=== PATIENT | female | born 2005 | race Caucasian/White ===

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

== ENCOUNTER 2024-03-28 20:43 | Observation (INO) | payer OTHER, BC ==
[~2024-03-28] VITALS: Ht 162.6 cm; Wt 54.4 kg
[2024-03-28 21:21] LABS: BASOPHILS ABSOLUTE AUTO 0.07 K/mm3 (0.00-0.23); BASOPHILS PERCENT AUTO 1 % (0-2); EOSINOPHILS ABSOLUTE AUTO 0.37 K/mm3 (0.00-0.68); EOSINOPHILS PERCENT AUTO 4 % (0-6); Hematocrit 37.8 % (33.0-51.0); Hemoglobin 12.4 g/dL (11.5-16.0); IMMATURE GRAN ABSOLUTE AUTO 0.02 K/mm3 (0.00-0.10); IMMATURE GRAN PERCENT AUTO 0 % (0-1); LYMPHOCYTES PERCENT AUTO 42 % (21-46); MONOCYTES ABSOLUTE AUTO 0.48 K/mm3 (0.16-1.47); MONOCYTES PERCENT AUTO 5 % (4-13); Mean Corpuscular HGB 27.9 pg (26.0-34.0); Mean Corpuscular HGB Conc 32.8 g/dL (31.5-36.5); Mean Corpuscular Volume 85 fL (80-100); NEUTROPHILS ABSOLUTE AUTO 4.21 K/mm3 (1.96-9.15); NEUTROPHILS PERCENT AUTO 48 % (41-73); Platelet Count 290 K/mm3 (150-400); RDW Coefficient Variation 13.7 % (11.7-14.2); RDW Standard Deviation 42.5 fL (35.1-46.3); Red Blood Cell Count 4.45 M/mm3 (3.80-5.20); White Blood Cell Count 8.85 K/mm3 (4.00-11.30)
[2024-03-28 21:48] LABS: Source, Urine Clean Catch
[2024-03-28 21:50] LABS: Albumin, Blood 4.1 g/dL (3.4-5.0); Albumin/Globulin Ratio 1.1 (0.8-1.8); Bilirubin, Total 0.4 mg/dL (0.1-1.0); Bun/Creatinine Ratio 12.3 (12.0-20.0); Calcium, Blood 9.5 mg/dL (8.5-10.1); Creatinine, Blood 0.73 mg/dL (0.40-1.00); Globulin, Blood 3.9 g/dL (2.2-4.0); Potassium, Blood 3.6 mmol/L (3.5-5.5)
[2024-03-28 21:56] LABS: Bilirubin, Urine Neg (Neg); Blood, Urine 5+ (Neg); Glucose Qualitative, Urine Neg (Neg); Ketones, Urine Neg (Neg); Leukocyte Esterase, Urine 1+ (Neg); Nitrite, Urine Neg (Neg); Protein, Urine Neg (Neg); Urobilinogen, Urine NORM (Normal)
[2024-03-28 22:04] LABS: Appearance, Urine Clear (Clear); Bacteria Few /hpf; Color, Urine Yellow (P-Yellow); Squamous Epithelial Cells Few /hpf (Few); White Blood Cells, Urine 0-2 /hpf (0-5)
[2024-03-28] MEDS ORDERED: Lactated Ringer's 1,000 ML IV SCH (22:45)
[2024-03-29] VITALS (13 sets, daily range): BP systolic 103–121; BP diastolic 57–74
[2024-03-29] MEDS ORDERED: FentaNYL Citrate 50 MCG/ML 2 ML Injection ONE (02:08)
[2024-03-29] MEDS ORDERED: propofoL 20 ML IV ONE (02:08)
[2024-03-29] MEDS ORDERED: Rocuronium Bromide 10 MG/ML 5ML Injection IV ONE (02:09)
[2024-03-29] MEDS ORDERED: Lidocaine HCl 2% Jelly 120MG/6ML SYR (20MG PER ML) ONE (03:22)
[2024-03-29] MEDS ORDERED: Midazolam HCl 1MG / ML 2ML Vial ONE (03:27)
[2024-03-29] MEDS ORDERED: Lidocaine HCl 1% 5 ML SYR INJ ONE (03:30)
[2024-03-29] MEDS ORDERED: Midazolam HCl 1MG / ML 2ML Vial IV ONE (03:30)
[2024-03-29] MEDS ORDERED: Ondansetron HCl 2 MG / ML 2ML Vial IV PRN ×2 (03:30→04:55)
[2024-03-29] MEDS ORDERED: FentaNYL Citrate 50 MCG/ML 2 ML Injection IV PRN ×3 (03:30→03:35)
[2024-03-29] MEDS ORDERED: Lactated Ringer's 1,000 ML IV ONE (03:30)
--- NOTE | 2024-03-29 03:35 | NUR ---
TRANSFERED PT FROM ER10 TO PACU FOR PRE OP CARE AT 0300. PT PLEASANT & COOPERATIVE. DENIES PAIN/CRAMPING. AFEBRILE/VSS. SURGICAL HAT/BP CUFF/PAS SLEEVES PLACED. GERARD WARMER ALSO PLACED. SURGICAL PACK COMPLETE. LR AT TKO. NO COMPLAINTS. WAITING FOR US TECH TO ARRIVE PER DR ELDRIDGE INSTRUCTION.
[2024-03-29] MEDS ORDERED: Ondansetron HCl 2 MG / ML 2ML Vial ONE (04:10)
[2024-03-29] MEDS ORDERED: Dexamethasone Sod Phos 10 MG/ML 1ML VIAL ONE (04:10)
--- NOTE | 2024-03-29 04:13 | NUR ---
PT TRANSFERED TO OR 2 [facility]IA [facility] AT 0350 IN STABLE CONDITION.
[2024-03-29] MEDS ORDERED: Sugammadex Sodium 200 MG/2ML SDV (100 MG/ML) ONE (04:18)
[2024-03-29] MEDS ORDERED: Flumazenil 0.1 MG / ML 5ML Vial ONE (04:30)
[2024-03-29] MEDS ORDERED: Lactated Ringer's 1,000 ML IV SCH (04:50)
[2024-03-29] MEDS ORDERED: Metoclopramide HCl 5MG / ML 2ML Vial IV PRN (04:50)
[2024-03-29] MEDS ORDERED: DiphenhydrAMINE HCL 25 MG Cap PO PRN (04:55)
[2024-03-29] MEDS ORDERED: Simethicone 80 MG Chew PO PRN (04:55)
[2024-03-29] MEDS ORDERED: OxyCODONE HCL 5 MG TAB PO PRN (04:55)
[2024-03-29] MEDS ORDERED: Naloxone HCl 0.4MG / ML 1ML Vial IV PRN (04:55)
[2024-03-29] MEDS ORDERED: Ketorolac Tromethamine 30mg Vial IV SCH (06:00)
[2024-03-29] MEDS ORDERED: Acetaminophen 500 MG Tab PO SCH (06:00)
--- NOTE | 2024-03-29 07:28 | NUR ---
SUMMARY POD #0 U/S GUIDED D&C PT ARRIVED TO ROOM 209 @ APPROX 0515 FROM PACU, PT IS ALERT, VSS, ON RA, RESP UNLABORED, 4/10 PAIN, DENIES NEED FOR MEDICATION, SBA TO BATHROOM FOR SAFETY,POST OP VOID X1, PT'S MOM IS AT BEDSIDE, REPORT GIVEN TO LOUISE LAO, PT RESTING QUIETLY IN BED, RESP UNLABORED.
[2024-03-29] MEDS ORDERED: Ibuprofen 400 MG Tab PO SCH (08:00)
--- NOTE | 2024-03-29 08:57 | NUR ---
PT WANTS TO DISCHARGE PT TOLERATED BREAKFAST, DENIES NAUSEA. PAIN TOLERABLE. HAS BEEN OOB TO VOID. [id number].
--- NOTE | 2024-03-29 09:16 | NUR ---
discharged iv dc'd. vss. reviewed dc instructions w/pt; verbalized understanding. pt left unit in [place] w/possessions and dc paperwork in hand to ride outside.
[2024-03-30] MEDS ORDERED: Enoxaparin 40 MG/0.4 ML SYR SC SCH (09:00)
== END 2024-03-29 09:23 | disposition home or self-care (01) ==
LOC: ER 20:43 → SURS 20:44
PROVIDERS: Emergency Medicine; ADMIT Obstetrics & Gynecology
PROC: 10D17ZZ Extraction of Products of Conception, Retained, Via Natural or Artificial Opening (ICD-10-PCS; principal; 2024-03-29 12:30)
DX: O72.2 Delayed and secondary postpartum hemorrhage (principal); M06.9 Rheumatoid arthritis, unspecified; Z37.9 Outcome of delivery, unspecified
CPT/HCPCS: 76830; 76856; 76998; 80053; 81001; 83690; 84702; 85025; 86850; 86900; 86901; 88305; 96374; 99285-25; A9270; G0378; J1100; J2250; J2405; J2704; J3010; J7060; J7120